=== PATIENT | female | born 1980 | race Asian ===

== ENCOUNTER 2021-09-19 06:41 | Emergency (ER) | payer OTHER ==
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
[2021-09-19] MEDS: IBUPROFEN 600 MG TABLET PO STA (07:27)
[2021-09-19] MEDS: ACETAMINOPHEN 325 MG TABLET PO STA (07:27)
[2021-09-19] MEDS: TETANUS/DIPHTHERIA/PERTUSSIS 0.5 ML SYRINGE IM ONE (07:28)
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
[2021-09-19 08:35] VITALS: BP 122/87
== END 2021-09-19 08:35 | disposition home or self-care (01) ==
LOC: ED 06:41
DX: S20.222A Contusion of left back wall of thorax, initial encounter (principal); S50.811A Abrasion of right forearm, initial encounter; S50.812A Abrasion of left forearm, initial encounter; V49.9XXA Car occupant (driver) (passenger) injured in unspecified traffic accident, initial encounter
CPT/HCPCS: 71046; 90471; 90715; 99282; 99283; A9270

== ENCOUNTER 2022-10-22 14:36 | Outpatient (CLI) | payer OTHER ==
--- NOTE | 2022-10-22 15:26 | XRAY Report ---
PROCEDURE: Hand 3 View BILAT INDICATIONS: PAIN TECHNIQUE: 3 views of the hand(s) acquired. COMPARISON: None. FINDINGS: Bones: No fractures or dislocations. No suspicious bony lesions. Soft tissues: No suspicious soft tissue calcifications or masses. IMPRESSION: No acute bony abnormality. Reviewed by: Andres Herrera on 10/22/2022 3:25 PM PDT Approved by: Andres Herrera on 10/22/2022 3:25 PM PDT Station ID: [id number]
--- NOTE | 2022-10-22 15:27 | XRAY Report ---
PROCEDURE: Wrist 3 View BILAT INDICATIONS: PAIN TECHNIQUE: 3 views of the wrist were acquired. COMPARISON: None. FINDINGS: Bones: No fractures or dislocations. No suspicious bony lesions. Scaphoid view: Unremarkable. Soft tissues: No suspicious soft tissue calcifications or masses. IMPRESSION: No acute bony abnormality. Reviewed by: Andres Herrera on 10/22/2022 3:26 PM PDT Approved by: Andres Herrera on 10/22/2022 3:26 PM PDT Station ID: [id number]
== END 2022-10-22 14:37 | disposition home or self-care (01) ==
LOC: DI 14:36
PROVIDERS: ATTEND Physician Assistant
DX: M79.642 Pain in left hand (principal); M79.641 Pain in right hand; M25.531 Pain in right wrist; M25.532 Pain in left wrist

== ENCOUNTER 2022-11-02 14:29 | Outpatient (CLI) | payer OTHER ==
--- NOTE | 2022-11-03 09:19 | Mammography Report ---
BILATERAL DIGITAL SCREENING MAMMOGRAM 3D/2D WITH EXAGGERATED CC: 11/02/2022 CLINICAL: Routine screening. Baseline exam. No prior exams were available for comparison. Both breasts are heterogeneously dense, which may obscure small masses (category c / 51-75% glandular tissue). No significant masses, calcifications, or other findings are seen in either breast. IMPRESSION: NEGATIVE There is no mammographic evidence of malignancy. A 1 year screening mammogram is recommended. Based on the Tyrer Cuzick model (a risk assessment model) the patients lifetime risk is 14.1% and he r 10 year risk is 2.4%. According to the ACR, ACS, and NCCN guidelines, an annual breast MRI exam navya ng with mammogram is recommended if the patients lifetime risk is 20% or greater. This exam was interpreted at Station ID: [id number]. NOTE: For mammograms, a report in lay terms will be sent to the patient. Approximately 15% of breast malignancies will not be visualized mammographically. In the management of a palpable breast mass, a negative mammogram must not discourage biopsy of a clinically suspicious lesion. Electronically Signed By: Michael chinchilla/annetta:11/02/2022 17:19:56 letter sent: No_Letter ACR BI-RADS Category 1: Negative 3341F PARENCHYMAL PATTERN: (D) - The breast(s) demonstrate(s) heterogeneously dense fibroglandular parwendy mcconnell. BI-RADS CATEGORY: (1) - 1 Mammogram [id number] 1 year screening LATERALITY: (B)
== END 2022-11-02 14:30 | disposition home or self-care (01) ==
LOC: DI 14:29
PROVIDERS: ATTEND Physician Assistant
DX: Z12.31 Encounter for screening mammogram for malignant neoplasm of breast (principal)